=== PATIENT | male | born 1945 | race Caucasian/White ===

== ENCOUNTER 2016-05-16 19:05 | Emergency (ER) | payer MEDICARE | END 2016-05-16 20:35 | disposition home or self-care (01) | LOC: ER 19:05 | DX: S63.287A Dislocation of proximal interphalangeal joint of left little finger, initial encounter (principal); S61.412A Laceration without foreign body of left hand, initial encounter; I10 Essential (primary) hypertension; X50.0XXA Overexertion from strenuous movement or load, initial encounter | CPT/HCPCS: 90471 ==

== ENCOUNTER 2016-05-20 09:27 | Emergency (ER) | payer MEDICARE | END 2016-05-20 10:02 | disposition home or self-care (01) | LOC: ER 09:27 | DX: S63.287D Dislocation of proximal interphalangeal joint of left little finger, subsequent encounter (principal); T23.202D Burn of second degree of left hand, unspecified site, subsequent encounter; I10 Essential (primary) hypertension; X58.XXXD Exposure to other specified factors, subsequent encounter ==